=== PATIENT | male | born 1990 | race Caucasian/White ===

== ENCOUNTER 2017-03-23 00:44 | Emergency (ER) | payer OTHER ==
[2017-03-23] MEDS ORDERED: Ketorolac 60 MG/2 ML SDV IM ONE (00:53)
[2017-03-23] MEDS ORDERED: Acetaminophen/oxyCODONE 325-5 MG Tab PO ONE ×2 (00:55→01:53)
[2017-03-23 00:56] VITALS: BP 137/114
--- NOTE | 2017-03-23 01:03 | EDM.PDOC ---
ED HPI GENERAL MEDICAL PROBLEM - General Chief Complaint: Burn Stated Complaint: SHOULDER/ARM BURN Time Seen by Provider: 03/23/17 00:50 Source of Information: Reports: Patient History Limitations: Reports: No Limitations - History of Present Illness INITIAL COMMENTS - FREE TEXT/NARRATIVE: 26 yo male was burned by hot water at work tonight to his right arm. Reports that his tetanus is UTD. Here with a co-worker. Onset: Today Onset Date: 03/23/17 Onset Time: 00:20 Duration: Minutes: Location: Reports: Upper Extremity, Right Quality: Reports: Burning Severity: Moderate Improves with: Reports: Cold Therapy Worsens with: Reports: Heat Therapy, Other (touching area) Context: Reports: Other (Hot water burn) Associated Symptoms: Reports: No Other Symptoms Treatments [employer]: Reports: Cold Therapy - Related Data Allergies Allergy/AdvReac Type Severity Reaction Status Date / Time No Known Allergies Allergy Verified 03/23/17 00:53 Home Meds: Home Meds NK [No Known Home Meds] 03/23/17 [History] ED ROS GENERAL - Review of Systems Review Of Systems: See Below Constitutional: Reports: No Symptoms HEENT: Reports: No Symptoms Respiratory: Reports: No Symptoms Cardiovascular: Reports: No Symptoms Skin: Reports: Erythema, Burn(s) Neurological: Reports: No Symptoms ED EXAM, BURN/SMOKE INHALATION - Physical Exam Exam: See Below Exam Limited By: No Limitations General Appearance: Alert, WD/WN, No Apparent Distress Respiratory: No Respiratory Distress, No Accessory Muscle Use Cardiovascular: Regular Rate, Rhythm Neurological: Alert, Oriented, CN II-XII Intact, Normal Cognition, No Motor/ Sensory Deficits Psychiatric: Normal Affect, Normal Mood Skin Exam: Warm, Dry, Intact, No Rash, Erythema (To the R forearm laterally and to a portion of the arm above the elbow, also laterally. No blistering yet at this point, but looks likely that that area above the elbow may blister soon. ) Lymphatic: No Adenopathy Course - Vital Signs Text/Narrative:: Toradol 60 mg IM, Percocet 1 po Last Recorded V/S: Last Vital Signs Temp 36.8 C 03/23/17 00:50 Pulse 106 H 03/23/17 00:50 Resp 20 03/23/17 00:50 BP 137/114 H 03/23/17 00:50 Pulse Ox 100 03/23/17 00:50 - Orders/Labs/Meds Meds: Medications Discontinued Medications Generic Name Dose Route Start Last Admin Trade Name Connie PRN Reason Stop Dose Admin Ketorolac Tromethamine 60 mg 03/23/17 00:53 Toradol IM 03/23/17 00:54 ONETIME ONE Oxycodone/Acetaminophen 1 tab 03/23/17 00:55 Percocet 325-5 Mg PO 03/23/17 00:56 ONETIME ONE Departure - Departure Time of Disposition: 01:15 Disposition: Home, Self-Care 01 Condition: Good Clinical Impression: First degree burn of right forearm Qualifiers: Encounter type: initial encounter Qualified Code(s): T22.111A - Burn of first degree of right forearm, initial encounter Second degree burn of right arm Qualifiers: Encounter type: initial encounter Upper extremity location: upper arm Qualified Code(s): T22.231A - Burn of second degree of right upper arm, initial encounter - Discharge Information
== END 2017-03-23 02:10 | disposition home or self-care (01) ==
LOC: FB.ED 00:44
DX: T22.231A Burn of second degree of right upper arm, initial encounter (principal); T22.111A Burn of first degree of right forearm, initial encounter; X11.8XXA Contact with other hot tap-water, initial encounter; Y92.69 Other specified industrial and construction area as the place of occurrence of the external cause; Y99.0 Civilian activity done for income or pay
CPT/HCPCS: 96372; 99000; 99283; A9270; J1885

== ENCOUNTER 2017-07-11 23:10 | Emergency (ER) | payer OTHER ==
--- NOTE | 2017-07-12 00:07 | EDM.PDOC ---
ED HPI GENERAL MEDICAL PROBLEM - General Chief Complaint: Lower Extremity Injury/Pain Stated Complaint: INJURY LEG Time Seen by Provider: 07/11/17 23:10 Source of Information: Reports: Patient, Other (coworker) History Limitations: Reports: No Limitations - History of Present Illness INITIAL COMMENTS - FREE TEXT/NARRATIVE: 27 y.o.w m torin came to the ed after he fell onto his left leg at work [employer] while standing up and turning to his right side. Pt is able to extend his left knee with pain at his left ant knee. No other injuries, no N/V/D or any other acute medical issues at this time. BP 146/78 pulse 76 Onset: Today Onset Date: 07/11/17 Onset Time: 22:00 Duration: Minutes: Location: Reports: Lower Extremity, Left Quality: Reports: Ache, Dull, Pressure Severity: Moderate Improves with: Reports: Rest Worsens with: Reports: Movement Context: Reports: Trauma (fall) Associated Symptoms: Reports: No Other Symptoms left knee pain Pain Score (Numeric/FACES): 5 - Related Data Allergies Allergy/AdvReac Type Severity Reaction Status Date / Time No Known Allergies Allergy Verified 03/23/17 00:53 Home Meds: Home Meds NK [No Known Home Meds] 07/12/17 [History] Past Medical History - Past Health History Medical/Surgical History: Denies Medical/Surgical History Social & Family History - Tobacco Use Smoking Status *Q: Never Smoker Second Hand Smoke Exposure: No - Caffeine Use Caffeine Use: Reports: Coffee - Recreational Drug Use Recreational Drug Use: No Review of Systems - Review of Systems Review Of Systems: See Below Constitutional: Reports: No Symptoms Eyes: Reports: No Symptoms Ears: Reports: No Symptoms Nose: Reports: No Symptoms Mouth/Throat: Reports: No Symptoms Respiratory: Reports: No Symptoms Cardiovascular: Reports: No Symptoms GI/Abdominal: Reports: No Symptoms Genitourinary: Reports: No Symptoms Musculoskeletal: Reports: Leg Pain Skin: Reports: No Symptoms Neurological: Reports: No Symptoms Psychiatric: Reports: No Symptoms ED EXAM, GENERAL - Physical Exam Exam: See Below Exam Limited By: No Limitations General Appearance: Alert, WD/WN, Mild Distress Eye Exam: Bilateral Eye: Normal Inspection Ears: Normal External Exam Ear Exam: Bilateral Ear: Auricle Normal Nose: Normal Inspection, Normal Mucosa Throat/Mouth: Normal Inspection Head: Atraumatic, Normocephalic Neck: Normal Inspection, Supple, Non-Tender, Full Range of Motion Respiratory/Chest: No Respiratory Distress, Lungs Clear, Normal Breath Sounds, No Accessory Muscle Use, Chest Non-Tender Cardiovascular: Normal Peripheral Pulses, Regular Rate, Rhythm, No Edema, No Gallop, No JVD Peripheral Pulses: 2+: Femoral (L), Femoral (R) GI/Abdominal: Normal Bowel Sounds, Soft (Male) Exam: Deferred Rectal (Males) Exam: Deferred Back Exam: Normal Inspection, Full Range of Motion Extremities: Limited Range of Motion (left leg due to left knee pain with movement ), Other (tender prepatellar area) Neurological: Alert, Oriented, CN II-XII Intact, Normal Cognition, Abnormal Gait Psychiatric: Normal Affect, Normal Mood Skin Exam: Warm, Dry, Intact, Normal Color, No Rash Lymphatic: No Adenopathy Course - Vital Signs Text/Narrative:: 27 y.o.w m a came to the ed after he fell onto his left leg at work [employer] while standing up and turning to his right side. Pt is able to extend his left knee with pain at his left ant knee. No other injuries, no N/V/D or any other acute medical issues at this time. BP 146/78 pulse 76 PE: WNWD WM with lft ant knee pain Imaging: Left high riding patella, official report is pending Impression: left ant knee sprain Tx: ICE, pt refused pain meds, knee immobilizer, cutches Reexam: Improved Plan: D/C with instructions Last Recorded V/S: Last Vital Signs Temp 36.6 C 07/12/17 02:26 Pulse 76 07/12/17 02:26 Resp 16 07/12/17 02:26 BP 142/78 H 07/12/17 02:26 Pulse Ox 99 07/12/17 02:26 - Orders/Labs/Meds Orders: Active Orders 24 hr Category Date Time Status Knee 3V Lt [CR] Stat Exams 07/11/17 23:19 Taken Tibia Fibula Lt [CR] Stat Exams 07/11/17 23:19 Taken Departure - Departure Time of Disposition: 00:12 Disposition: Home, Self-Care 01 Condition: Good Clinical Impression: Left knee sprain Qualifiers: Encounter type: initial encounter Involved ligament of knee: other ligament Qualified Code(s): S83.8X2A - Sprain of other specified parts of left knee, initial encounter - Discharge Information Instructions: Crutch Use Referrals: PCP,None [Primary Care Provider] - Forms: ED Department Discharge, ED Return to Work/School Form Additional Instructions: Rest, ice, elevation, take motrin for pain, please f/u with your PMD this thursday. Use knee immobilizer and cutches, weight bearing as tolerated, please come back to the ed if your symptoms get worse acutely. - My Orders Last 24 Hours: My Active Orders 07/11/17 23:19 Knee 3V Lt [CR] Stat Tibia Fibula Lt [CR] Stat - Assessment/Plan Last 24 Hours: My Active Orders 07/11/17 23:19 Knee 3V Lt [CR] Stat Tibia Fibula Lt [CR] Stat
[2017-07-12 02:30] VITALS: BP 142/78
--- NOTE | 2017-07-13 12:31 | CR ---
INDICATION: Fall, pain with movement and weightbearing. LEFT KNEE: Three views of the left knee revealed slight prominence at the suprapatellar bursa, raising question of a knee joint effusion. This should be correlated clinically. A definite fracture, dislocation, or other significant bone or joint abnormality was not identified. IMPRESSION: Question knee joint effusion - correlate clinically. MTDD
--- NOTE | 2017-07-13 12:32 | CR ---
INDICATION: Fall, pain with movement and weightbearing. LEFT TIBIA AND FIBULA: Frontal and lateral views of the left tibia and fibula revealed no definite fracture, dislocation, or other significant bone or joint abnormality. [facility]
== END 2017-07-12 00:30 | disposition home or self-care (01) ==
LOC: FB.ED 23:10
DX: S83.92XA Sprain of unspecified site of left knee, initial encounter (principal); W19.XXXA Unspecified fall, initial encounter
CPT/HCPCS: 73562-LT; 73590-LT; 99000; 99283

== ENCOUNTER 2019-03-08 13:24 | Emergency (ER) | payer OTHER ==
--- NOTE | 2019-03-08 13:56 | EDM.PDOC ---
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 There is residual pain and swelling at base of L thumb, and pain with movement. CMS is intact. No meds have been taken. left thumb Pain Score (Numeric/FACES): 5 - Related Data Allergies Allergy/AdvReac Type Severity Reaction Status Date / Time No Known Allergies Allergy Verified 03/08/19 13:46 Home Meds: Home Meds Sertraline [Zoloft] 200 mg PO DAILY 03/08/19 [History] Past Medical History - Past Health History Medical/Surgical History: Denies Medical/Surgical History Psychiatric History: Reports: Anxiety, Depression Social & Family History - Family History Family Medical History: Noncontributory Other Dermatologic Family History: Patient states he can't recall anything for family medical hx. - Tobacco Use Smoking Status *Q: Never Smoker Second Hand Smoke Exposure: No - Caffeine Use Caffeine Use: Reports: Coffee - Recreational Drug Use Recreational Drug Use: No Review of Systems - Review of Systems Review Of Systems: ROS reveals no pertinent complaints other than HPI. ED EXAM, GENERAL - Physical Exam Exam: See Below Exam Limited By: No Limitations General Appearance: Alert, WD/WN, Mild Distress Head: Atraumatic, Normocephalic Neck: Normal Inspection, Supple, Full Range of Motion Respiratory/Chest: Lungs Clear, Chest Non-Tender Cardiovascular: Regular Rate, Rhythm, No Murmur Back Exam: Normal Inspection Extremities: Limited Range of Motion (L hand: there is visible and palpable swelling at the base of the 1st metacarpal with a small hematoma, no palpable lopez defect; ROM is restricted to extension and circumduction because of pain; CMS intact, no other defect detected in L hand or wrist; ) Neurological: Alert, Oriented, CN II-XII Intact, No Motor/Sensory Deficits Psychiatric: Normal Affect, Normal Mood Skin Exam: Warm, Dry, Ecchymosis (minor ecchymoses at base of L 1st MC), Other ( minor abrasion at base of first MC) Lymphatic: No Adenopathy Course - Vital Signs Text/Narrative:: I reviewed x rays of L hand, no fx seen. Last Recorded V/S: Last Vital Signs Temp 36.9 C 03/08/19 13:41 Pulse 78 03/08/19 13:41 Resp 14 03/08/19 13:41 BP 130/65 03/08/19 13:41 Pulse Ox 99 03/08/19 13:41 - Orders/Labs/Meds Orders: Active Orders 24 hr Category Date Time Status Hand Comp Min 3V Lt [CR] Stat Exams 03/08/19 13:51 Ordered Departure - Departure Time of Disposition: 14:13 Disposition: Home, Self-Care 01 Condition: Fair Clinical Impression: Contusion of left hand, initial encounter, Abrasion of left hand, initial encounter - Discharge Information *PRESCRIPTION DRUG MONITORING PROGRAM REVIEWED*: Not Applicable *COPY OF PRESCRIPTION DRUG MONITORING REPORT IN PATIENT FAHAD: Not Applicable Forms: ED Department Discharge - Problem List & Annotations (1) Contusion of left hand, initial encounter SNOMED Code(s): 4166307 Code(s): S60.222A - CONTUSION OF LEFT HAND, INITIAL ENCOUNTER Status: Acute Current Visit: Yes Annotation/Comment:: Minor abrasion to keep clean and covered with bandaid, Tylenol or Ibuprofen for pain as needed. (2) Abrasion of left hand, initial encounter SNOMED Code(s): 962377598, [id number] Code(s): S60.512A - ABRASION OF LEFT HAND, INITIAL ENCOUNTER Status: Acute Current Visit: Yes - Problem List Review Problem List Initiated/Reviewed/Updated: Yes - My Orders Last 24 Hours: My Active Orders 03/08/19 13:51 Hand Comp Min 3V Lt [CR] Stat - Assessment/Plan Last 24 Hours: My Active Orders 03/08/19 13:51 Hand Comp Min 3V Lt [CR] Stat Plan: Return to work with 20# grasping restriction to L hand for a week,
[2019-03-08 14:42] VITALS: BP 135/69
== END 2019-03-08 14:45 | disposition home or self-care (01) ==
LOC: FB.ED 13:24
DX: S60.222A Contusion of left hand, initial encounter (principal); F41.9 Anxiety disorder, unspecified; F32.9 Major depressive disorder, single episode, unspecified; Z79.899 Other long term (current) drug therapy; W22.8XXA Striking against or struck by other objects, initial encounter
CPT/HCPCS: 73130-LT; 99000; 99283-25